=== PATIENT | male | born 1995 | race Two or more races ===

== ENCOUNTER 2023-04-04 10:26 | Emergency (ER) | payer MEDICAID ==
[~2023-04-04] VITALS: Ht 190.5 cm; Wt 89.9 kg
[2023-04-04 12:19] VITALS: BP 128/85; PULSE 107; RESP 18; TEMP 98; O2SAT 97
[2023-04-04] MEDS ORDERED: cefTRIAXone SOD 1,000 MG VL IM ONE (12:30)
[2023-04-04] MEDS ORDERED: LIDOCAINE 1% HCL (LOCAL ANESTH.) INJ 20ML MDV ONE (12:42)
[2023-04-04] MEDS ORDERED: IBUP-1456 PO (12:47)
[2023-04-04] MEDS ORDERED: CLIN300C70 PO (12:47)
== END 2023-04-04 13:13 | disposition home or self-care (01) ==
LOC: ER 10:26
DX: K04.7 Periapical abscess without sinus (principal); Z79.1 Long term (current) use of non-steroidal anti-inflammatories (NSAID); Z79.2 Long term (current) use of antibiotics
CPT/HCPCS: 96372; 99283; J0696; J2001